=== PATIENT | male | born 1990 | race Caucasian/White ===

== ENCOUNTER 2017-04-07 19:53 | Emergency (ER) | payer BC, OTHER ==
[2017-04-07] MEDS ORDERED: Ketorolac 60 MG/2 ML SDV IM ONE (20:07)
--- NOTE | 2017-04-07 20:09 | EDM.PDOC ---
ED HPI GENERAL MEDICAL PROBLEM - General Chief Complaint: Lower Extremity Injury/Pain Stated Complaint: HYPER-EXTENDED RIGHT KNEE Time Seen by Provider: 04/07/17 19:58 - History of Present Illness INITIAL COMMENTS - FREE TEXT/NARRATIVE: HISTORY AND PHYSICAL: History of present illness: Patient's a 26-year-old male presents with concern of acute right knee injury this occurred when he hyperextended his knee while at work he has had prior injuries but never sought orthopedic care patient states he also some mild right hip soreness he denies direct trauma he denies other trauma or concern Review of systems: As per history of present illness and below otherwise all systems reviewed and negative. Past medical history: As per history of present illness and as reviewed below otherwise noncontributory. Surgical history: As per history of present illness and as reviewed below otherwise noncontributory. Social history: No reported history of drug or alcohol abuse. Family history: As per history of present illness and as reviewed below otherwise noncontributory. Physical exam: HEENT: Atraumatic, normocephalic, pupils reactive, negative for conjunctival pallor or scleral icterus, mucous membranes moist, throat clear, neck supple, nontender, trachea midline. Lungs: Clear to auscultation, breath sounds equal bilaterally, chest nontender. Heart: S1S2, regular, negative for clicks, rubs, or JVD. Abdomen: Soft, nondistended, nontender. Negative for masses or hepatosplenomegaly. Negative for costovertebral tenderness. Pelvis: Stable nontender. Genitourinary: Deferred. Rectal: Deferred. Extremities: Small swelling noted joint grossly stable no crepitation or point tenderness limited range of motion secondary to pain CMS neurovascular exam is unremarkable Neuro: Awake, alert, oriented. Cranial nerves II through XII unremarkable. Cerebellum unremarkable. Motor and sensory unremarkable throughout. Exam nonfocal. Diagnostics: X-ray right knee/hip Therapeutics: Toradol 60 mg IM Impression: #1 acute right knee/hip injury Definitive disposition and diagnosis as appropriate pending reevaluation and review of above. Right Knee Pain Score (Numeric/FACES): 8 - Related Data Allergies Allergy/AdvReac Type Severity Reaction Status Date / Time No Known Allergies Allergy Verified 07/13/16 14:22 Home Meds: Home Meds . [No Known Home Meds] 04/07/17 [History] Past Medical History Cardiovascular History: Reports: None Respiratory History: Reports: None Gastrointestinal History: Reports: None Genitourinary History: Reports: None Musculoskeletal History: Reports: None Neurological History: Reports: None Psychiatric History: Reports: None Endocrine/Metabolic History: Reports: None Hematologic History: Reports: None Immunologic History: Reports: None Oncologic (Cancer) History: Reports: None Dermatologic History: Reports: None - Infectious Disease History Infectious Disease History: Reports: Chicken Pox - Past Surgical History Head Surgeries/Procedures: Reports: None HEENT Surgical History: Reports: Tonsillectomy Social & Family History - Family History Family Medical History: Noncontributory - Tobacco Use Smoking Status *Q: Current Every Day Smoker Years of Tobacco use: 1 Packs/Tins Daily: 1 - Caffeine Use Caffeine Use: Reports: Coffee, Soda - Alcohol Use Days Per Week of Alcohol Use: 2 Number of Drinks Per Day: 2 Total Drinks Per Week: 4 - Recreational Drug Use Recreational Drug Use: No Review of Systems - Review of Systems Review Of Systems: ROS reveals no pertinent complaints other than HPI. ED EXAM, GENERAL - Physical Exam Exam: See Below (See dictation) Course - Vital Signs Last Recorded V/S: Last Vital Signs Temp 36.6 C 04/07/17 19:58 Pulse 95 04/07/17 19:58 Resp 18 04/07/17 19:58 BP 128/78 04/07/17 19:58 Pulse Ox 97 04/07/17 19:58 - Orders/Labs/Meds Orders: Active Orders 24 hr Category Date Time Status Hip Min 2V or 3V Rt [CR] Stat Exams 04/07/17 20:07 Taken Knee 3V Rt [CR] Stat Exams 04/07/17 20:03 Taken Knee wo Cont Rt [CT] Stat Exams 04/07/17 21:08 Taken Meds: Medications Discontinued Medications Generic Name Dose Route Start Last Admin Trade Name Freq PRN Reason Stop Dose Admin Ketorolac Tromethamine 60 mg 04/07/17 20:07 04/07/17 20:17 Toradol IM 04/07/17 20:08 60 mg ONETIME ONE Administration Departure - Departure Time of Disposition: 22:14 Disposition: Home, Self-Care 01 Condition: Good Clinical Impression: Knee injury - Discharge Information Forms: ED Department Discharge Additional Instructions: e following information is given to patients seen in the emergency department who are being discharged to home. This information is to outline your options for follow-up care. We provide all patients seen in our emergency department with a follow-up referral. The need for follow-up, as well as the timing and circumstances, are variable depending upon the specifics of your emergency department visit. If you don't have a primary care physician on staff, we will provide you with a referral. We always advise you to contact your personal physician following an emergency department visit to inform them of the circumstance of the visit and for follow-up with them and/or the need for any referrals to a consulting specialist. The emergency department will also refer you to a specialist when appropriate. This referral assures that you have the opportunity for followup care with a specialist. All of these measure are taken in an effort to provide you with optimal care, which includes your followup. Under all circumstances we always encourage you to contact your private physician who remains a resource for coordinating your care. When calling for followup care, please make the office aware that this follow-up is from your recent emergency room visit. If for any reason you are refused follow-up, please contact the [facility] emergency department at and asked to speak to the emergency department charge nurse. [facility] [address], [address] [place] [address] Knee immobilizer/crutches as directed Motrin/Tylenol as directed call to schedule appointment with orthopedic surgery above return as needed as discussed - My Orders Last 24 Hours: My Active Orders 04/07/17 20:03 Knee 3V Rt [CR] Stat 04/07/17 20:07 Hip Min 2V or 3V Rt [CR] Stat 04/07/17 21:08 Knee wo Cont Rt [CT] Stat - Assessment/Plan Last 24 Hours: My Active Orders 04/07/17 20:03 Knee 3V Rt [CR] Stat 04/07/17 20:07 Hip Min 2V or 3V Rt [CR] Stat 04/07/17 21:08 Knee wo Cont Rt [CT] Stat
[2017-04-07 22:34] VITALS: BP 121/74
--- NOTE | 2017-04-10 11:37 | CR ---
EXAM DATE: 04/07/17 PATIENT'S AGE: 26 Patient: SOU[facility] DAVIES Facility: [place], [place] Site . Site : 1990 Study: XRay Knee [id number]/7/2017 8:43:26 PM Ordering Physician: Omaira Maravilla Final Report: INDICATION: fell at work TECHNIQUE: 3 views of the right knee COMPARISON: None FINDINGS: Bones: No fracture appreciated. Benign appearing sclerotic bone lesion within the lateral tibial plateau. Joint spaces: A lipohemarthrosis. Soft tissues: Unremarkable. IMPRESSION: Lipohemarthrosis. An occult fracture is suspected. Consider unenhanced CT of the right knee without contrast to further evaluate as clinically warranted. Dictated by Renny Roland MD @ 04/07/2017 9:01:01 PM Dictated by: Renny Roland MD @ 04/07/2017 21:01:39 (Electronic Signature) Report Signed by Proxy. ZUHAIR
--- NOTE | 2017-04-10 11:38 | CR ---
EXAM DATE: 04/07/17 PATIENT'S AGE: 26 Patient: SOUTH DAVIES Facility: [place], [place] Site . Site : 1990 Study: XRay Hip [id number]/7/2017 8:43:59 PM Ordering Physician: Omaira Maravilla Final Report: INDICATION: hyperextended knee TECHNIQUE: Two views of the right hip COMPARISON: None FINDINGS: Bones: No fractures or bone lesions. Joint spaces: Unremarkable. Soft tissues: Unremarkable. IMPRESSION: No acute bony abnormality of the right hip Dictated by Renny Roland MD @ 04/07/2017 9:02:39 PM Dictated by: Renny Roland MD @ 04/07/2017 21:02:52 (Electronic Signature) Report Signed by Proxy. [facility]ITAL[facility]
--- NOTE | 2017-04-10 11:39 | CT ---
EXAM DATE: 04/07/17 PATIENT'S AGE: 26 Patient: SOUTH DAVIES Facility: [place], [place] Site . Site : 1990 Study: CT Knee Right [id number]/7/2017 9:33:23 PM Ordering Physician: Omaira Maravilla Final Report: HISTORY: Knee pain after falling injury. Findings: The knee was studied in the axial plane. Sagittal and coronal 2 dimensional reconstructions were then performed. There are no findings for fracture, dislocation, arthritic change, effusion or loose body. The extensor mechanism appears intact. No soft tissue mass or fluid collection is noted. Soft tissue swelling is present anteriorly. Impression: Negative study for fracture. Please note that all CT scans at this facility use dose modulation, iterative reconstruction, and/or weight-based dosing when appropriate to reduce radiation dose to as low as reasonably achievable. Dictated by Amari Irizarry MD @ Apr 08 2017 6:58AM (Electronic Signature) Report Signed by Proxy. MTDD
== END 2017-04-07 22:30 | disposition home or self-care (01) ==
LOC: MW.ED 19:53
DX: S89.91XA Unspecified injury of right lower leg, initial encounter (principal); F17.210 Nicotine dependence, cigarettes, uncomplicated; Z98.890 Other specified postprocedural states; X50.9XXA Other and unspecified overexertion or strenuous movements or postures, initial encounter
CPT/HCPCS: 73502; 73562; 73700; 96372; 99284; J1885; 99283

== ENCOUNTER 2017-06-15 09:22 | Day surgery (SDC) | payer OTHER ==
--- NOTE | 2017-06-15 08:29 | PCM.OPNOTE ---
- General Post-Op/Procedure Note Date of Surgery/Procedure: 06/15/17 Operative Procedure(s): Right knee scope with PLM and arthroscopically aided ACL reconstruction using allograft Post-Op Diagnosis: R knee ACL tear Anesthesia Technique: General ET Tube Primary Surgeon: Arelis Hair Upholsterer Inside: Violeta Cartwright in mLs: 10 Condition: Good Free Text/Narrative:: #[id number] tt=59 min
[~2017-06-15 09:22] MED LIST: Acetaminophen/HYDROcodone 325-10 MG Tab PO PRN; Bupivacaine 0.5% 30 ML SDV ONE; Ketorolac 10 MG Tab PO PRN; Lactated Ringers 1,000 ML IV SCH; Lidocaine 1% 20 ML MDV ONE; ceFAZolin 1 GM in Premix Bag 1 BAG IV SCH
--- NOTE | 2017-06-15 10:52 | PCM.PREANE ---
Preanesthetic Assessment - Procedure Proposed Procedure: Right knee arthroscopy and ACL repair - Anesthesia/Transfusion/Family Hx Anesthesia History: Prior Anesthesia Without Reaction Family History of Anesthesia Reaction: No Transfusion History: No Prior Transfusion(s) Additional History: Multiple recreational drug exposures. hx seizures in teens....none recently. - Review of Systems General: No Symptoms Pulmonary: No Symptoms Cardiovascular: No Symptoms Gastrointestinal: No Symptoms Neurological: Difficulty Walking (due to knee pain) Other: Reports: None - Physical Assessment NPO Status Date: 06/15/17 NPO Status Time: 03:00 O2 Sat by Pulse Oximetry: 95 Respiratory Rate: 16 Vital Signs: Last Vital Signs Temp 98.2 F 06/15/17 09:34 Pulse 64 06/15/17 09:34 Resp 16 06/15/17 09:34 BP 130/80 06/15/17 09:34 Pulse Ox 95 06/15/17 09:34 Height: 6 ft 1 in Weight: 170 lb ASA Class: 2 Mental Status: Alert & Oriented x3 Airway Class: Mallampati = 1 Dentition: Reports: Normal Dentition Thyro-Mental Finger Breadths: 3 Mouth Opening Finger Breadths: 3 (trinidad) ROM/Head Extension: Full Lungs: Clear to Auscultation, Normal Respiratory Effort Cardiovascular: Regular Rate, Regular Rhythm, No Murmurs - Allergies Allergies/Adverse Reactions: Allergies Allergy/AdvReac Type Severity Reaction Status Date / Time No Known Allergies Allergy Verified 07/13/16 14:22 - Blood Blood Available: No Product(s) Available: None - Anesthesia Plan Pre-Op Medication Ordered: None - Acknowledgements Anesthesia Type Planned: General Anesthesia (LMA vs OET) Pt an Appropriate Candidate for the Planned Anesthesia: Yes Alternatives and Risks of Anesthesia Discussed w Pt/Guardian: Yes Pt/Guardian Understands and Agrees with Anesthesia Plan: Yes PreAnesthesia Questionnaire HEENT History: Reports: Other (See Below) Other HEENT History: wears glasses Cardiovascular History: Reports: None Respiratory History: Reports: None Gastrointestinal History: Reports: Other (See Below) Other Gastrointestinal History: occasional heartburn Genitourinary History: Reports: None Musculoskeletal History: Reports: Other (See Below) Other Musculoskeletal History: currently has injury to rt knee Neurological History: Reports: Seizure Other Neuro History: seizures in highschool, "none for over 10 yrs" Psychiatric History: Reports: None Endocrine/Metabolic History: Reports: None Hematologic History: Reports: None Immunologic History: Reports: None Oncologic (Cancer) History: Reports: None Dermatologic History: Reports: None - Infectious Disease History Infectious Disease History: Reports: Chicken Pox - Past Surgical History Head Surgeries/Procedures: Reports: None HEENT Surgical History: Reports: Oral Surgery, Tonsillectomy - SUBSTANCE USE Smoking Status *Q: Current Every Day Smoker Tobacco Use Within Last Twelve Months: Cigarettes Days Per Week of Alcohol Use: 2 Number of Drinks Per Day: 2 Total Drinks Per Week: 4 Recreational Drug Use History: No Recreational Drug Type: Reports: Cocaine, Marijuana/Hashish, Methamphetamine - HOME MEDS Home Medications: Home Meds . [No Known Home Meds] 04/07/17 [History] - CURRENT (IN HOUSE) MEDS Current Meds: Current Medications Hydrocodone Bitart/Acetaminophen (Hemet 325-10 Mg) 1 - 2 tab PO Q4H PRN PRN Reason: Pain Cefazolin Sodium/Dextrose 1 gm (/ Premix) 50 mls @ 100 mls/hr IV ONCALL SAMINA Lactated Ringer's (Ringers, Lactated) 1,000 mls @ 100 mls/hr IV ASDIRECTED SAMINA Last Admin: 06/15/17 09:33 Dose: 100 mls/hr Ketorolac Tromethamine (Toradol) 10 mg PO Q6H PRN PRN Reason: Pain Stop: 06/20/17 08:01 Discontinued Medications Bupivacaine HCl (Marcaine 0.5%) Confirm Administered Dose 30 ml .ROUTE .STK-MED ONE Stop: 06/15/17 07:55 Lidocaine HCl (Xylocaine 1%) Confirm Administered Dose 20 ml .ROUTE .STK-MED ONE Stop: 06/15/17 07:55
[2017-06-15] MEDS ORDERED: Lidocaine 2% 5 ML SDV ONE (12:08)
[2017-06-15] MEDS ORDERED: fentaNYL 100 MCG/2 ML SDV ONE ×2 (12:09→14:01)
[2017-06-15] MEDS ORDERED: Propofol 200 MG/20 ML SDV ONE (12:09)
[2017-06-15] MEDS ORDERED: Midazolam 1 MG/ML 2 ML SDV ONE (12:09)
[2017-06-15] MEDS ORDERED: Ketorolac 30 MG/ML SDV ONE (12:09)
[2017-06-15] MEDS ORDERED: Succinylcholine/Normal Saline 200 MG/10 ML Syringe ONE (12:09)
[2017-06-15] MEDS ORDERED: Ondansetron 4 MG/2 ML SDV ONE (12:09)
[2017-06-15] MEDS: fentaNYL 100 MCG/2 ML SDV IVPUSH PRN ×4 (15:15→16:32)
--- NOTE | 2017-06-15 15:24 | PCM.POSTAN ---
POST ANESTHESIA ASSESSMENT - MENTAL STATUS Mental Status: Alert, Oriented - RESPIRATORY Respiratory Status: Respiratory Rate WNL, Airway Patent, O2 Saturation Stable - CARDIOVASCULAR CV Status: Pulse Rate WNL, Blood Pressure Stable - GASTROINTESTINAL GI Status: No Symptoms - PAIN Pain Score: 8 - POST OP HYDRATION Hydration Status: Adequate & Stable
[2017-06-15 16:46] VITALS: BP 141/39
[2017-06-15] MEDS ORDERED: Lidocaine 1% 20 ML MDV ONE (16:59)
--- NOTE | 2017-06-15 17:16 | PCM48HPAN ---
Post Anesthesia Note - EVALUATION WITHIN 48HRS OF ANESTHETIC Vital Signs in Normal Range: Yes Patient Participated in Evaluation: Yes Respiratory Function Stable: Yes Airway Patent: Yes Cardiovascular Function Stable: Yes Hydration Status Stable: Yes Pain Control Satisfactory: Yes Nausea and Vomiting Control Satisfactory: Yes Mental Status Recovered: Yes - COMMENTS/OBSERVATIONS Free Text/Narrative:: Difficult to maneuver with straight leg in order to be transported to vehicle for ride home. He handled it well.
--- NOTE | 2017-06-15 21:04 | OR ---
SURGEON: Arelis Hair MD DATE OF PROCEDURE: 06/15/2017 PREOPERATIVE DIAGNOSIS: Left knee anterior cruciate ligament tear. POSTOPERATIVE DIAGNOSES: Left knee anterior cruciate ligament tear and left knee lateral meniscus tear. PROCEDURES: Left knee arthroscopy with: 1. Partial lateral meniscectomy. 2. Arthroscopically aided anterior cruciate ligament reconstruction using allograft. BALE TIE MACHINE OPERATOR: Violeta Cartwrihgt PA-C. ANESTHESIA: General. ESTIMATED BLOOD LOSS: 10 mL. TOURNIQUET TIME: 59 minutes. COMPLICATIONS: None. DVT PROPHYLAXIS: PAS boot to the nonoperative leg. IMPLANTS USED: Arthrex ACL TightRope fixation system with EndoButton on the distal femur and plate on the proximal tibia. BRIEF HISTORY: Tariq is a 26-year-old male, who sustained an injury to his right knee. MRI confirmed a tear of the anterior cruciate ligament. He did undergo initial conservative treatment. He elected to proceed with surgical treatment. The risks and goals of the procedure were discussed with the patient and were documented preoperatively. He agreed to proceed. DESCRIPTION OF PROCEDURE: The patient was properly identified and brought to the operating room. He was transferred from the OR cart and placed on the operating room table in supine position. General anesthesia was administered. After adequate anesthesia was obtained, a well-padded tourniquet was applied to the right lower extremity. The right lower extremity was then prepped in standard fashion using ChloraPrep solution. It was then sterilely draped. A time-out was performed to ensure correct site and procedure. Preoperative antibiotics were given. The surgical site had been marked preoperatively. An Esmarch was used to exsanguinate the right lower extremity and the tourniquet was inflated to 250 mmHg. A lateral portal arthrotomy was established. Blunt trocar and cannula were introduced into the suprapatellar pouch. Camera, inflow, and outflow were assembled. The suprapatellar pouch showed no significant synovitis. The patellofemoral joint was visualized. There appeared to be no degenerative changes. The patella appeared to track centrally. I then extended down the lateral and medial gutter. No loose bodies were identified. I then entered the medial compartment. A medial portal arthrotomy was established. A blunt probe was inserted. The medial meniscus was probed. No tears were appreciated. The joint surfaces appeared pristine. I then entered the notch. Immediately evident was a deficiency of the ACL. There was a small remnant of ligament attached to the lateral femoral condyle. The remainder was scarred to the PCL. I then entered the lateral compartment. The lateral meniscus was probed. He was found to have a nearly full thickness tear of the posterior horn of the lateral meniscus which involved the white-white zone. I did not feel this was amenable to repair due to its central location. Using a combination of biters and shaver, this was resected back to a stable remnant. The remaining remnant did have a horizontal split, however, probing of the superior and inferior portion showed no evidence of instability. The joint surfaces showed minor softening consistent with grade 1 chondromalacia. I then turned my attention back to the notch. The ACL remnant was removed. The PCL was visualized and found to be intact. The attachment site was gently debrided. The portion of the ACL insertion was kept in place for its proprioceptive qualities. The lateral wall was cleared of tissue. A curette was used to make sure that we were posterior enough and I was able to lift the femur with this. A 5.0 mm joaquina was then used to perform a notchplasty which improved visualization. The tibia was prepared first. The graft had been prepared on the back table in the usual fashion. It did have a diameter of 8.5 mm. The tibial guide was placed. A medial proximal tibia incision was made. The subcutaneous tissues were dissected down to the level of the periosteum. Electrocautery was used to incise the periosteum and this was gently elevated. The tibial guide was then placed. A wire was passed into the proximal tibia. It was felt that it was appropriate placement and length. This wire was then overdrilled with a 9 mm reamer. The shaver was inserted into the tibial hole to clean any bony debris. A rasp was also used to smooth the posterior edge of the tibial tunnel. A cannula was then placed into the tibial tunnel which helped with water management. We then turned our attention to the femur. The retrograde cutter guide was placed in the appropriate position. A small incision was made over the lateral aspect of the distal femur and the FlipCutter was inserted. It was felt that we had appropriate position of the FlipCutter. This was then back reamed approximately 27 mm. I was quite happy with the position of the femoral tunnel as it was quite posterior and inferior. The shaver was then introduced to remove the bony debris. The suture was then passed through the cannula and was grasped with from the tibial tunnel. The cannulas were then removed. The graft was passed into the distal femur. I was able to visualize the EndoButton as it deployed. It was flipped over the outer cortex of the distal femur. C-arm confirmed that the button had flipped along the cortex. The graft was then advanced approximately 20 mm into the distal femur. The knee was then taken through a range of motion under direct visualization. There did not appear to be any impingement of the graft with the PCL or the condyle. The leg was then brought into a position of extension. The button was attached to the TightRope fixation system. The TightRope fixation system was then used to stabilize the graft to the tibia. The knee was held in slight hyperextension as this was done. The camera was then placed back into the knee and I was able to directly visualize the graft. It was probed and found to be stable. The sutures were then tied over the distal button on the tibia. The tourniquet was deflated. 0 Vicryl was used to close the tissue overlying the button. 3-0 nylon was used to close the subcutaneous tissues and 4-0 Monocryl was used to close the skin. Steri-Strips and Benzoin were placed. 3-0 nylon was used to close remainder of the incisions. Xeroform gauze was placed over the wound and a bulky dressing was applied. He was placed into a hinged knee brace locked in full extension. He was awakened from his anesthetic and transferred back to the operating room cart. He was brought to recovery room in stable condition. All needle and sponge counts were correct. KARTIK / EDSON /[id number]
--- NOTE | 2017-06-16 08:51 | CR ---
EXAMINATION: Pain the HISTORY: ACL repair COMPARISON: 04/19/2017 TECHNIQUE: Single view FINDINGS/IMPRESSION: Single operative control film demonstrates post operative changes secondary to A CL repair.
== END 2017-06-15 16:45 | disposition home or self-care (01) ==
LOC: MW.SDS 09:22
PROVIDERS: ATTEND Orthopaedic Surgery
DX: S83.512A Sprain of anterior cruciate ligament of left knee, initial encounter (principal); S83.242A Other tear of medial meniscus, current injury, left knee, initial encounter; X58.XXXA Exposure to other specified factors, initial encounter; Y93.9 Activity, unspecified; Y92.69 Other specified industrial and construction area as the place of occurrence of the external cause; Z98.890 Other specified postprocedural states
CPT/HCPCS: 29881; 29888; 76000; A9270; J0690; J1885; J2250; J2405; J3010; J7120; 01402; 88304; C1762; C1776; J2704

== ENCOUNTER 2017-11-25 05:28 | Emergency (ER) | payer MEDICAID, OTHER ==
[2017-11-25 06:25] LABS: CHLORIDE,CL 106 mmol/L (98-110); SODIUM,NA 139 mmol/L (136-146)
[2017-11-25] MEDS ORDERED: Bacitracin Oint 1 GM U/D Packet TOP ONE (06:25)
[2017-11-25 06:34] VITALS: BP 141/95
[2017-11-25] MEDS ORDERED: Ondansetron 4 MG/2 ML SDV IVPUSH ONE (06:41)
[2017-11-25] MEDS ORDERED: Ondansetron 4 MG Tab.DIS PO ONE (06:42)
--- NOTE | 2017-11-25 07:11 | EDM.PDOC ---
ED HPI GENERAL MEDICAL PROBLEM - General Chief Complaint: General Stated Complaint: DIFFICULTY BREATHING Time Seen by Provider: 11/25/17 07:10 - History of Present Illness INITIAL COMMENTS - FREE TEXT/NARRATIVE: HISTORY AND PHYSICAL: History of present illness: Patient is 27-year-old male history of polysubstance abuse who presents after having been found unresponsive at his apartment by his roommate paramedics were called Narcan was given intranasal and intravenously patient responded and is awake alert on arrival is no complaints and no recollection of the event he acknowledges polysubstance abuse. His emergency course has been unremarkable and patient request discharged home Review of systems: As per history of present illness and below otherwise all systems reviewed and negative. Past medical history: As per history of present illness and as reviewed below otherwise noncontributory. Surgical history: As per history of present illness and as reviewed below otherwise noncontributory. Social history: No reported history of drug or alcohol abuse. Family history: As per history of present illness and as reviewed below otherwise noncontributory. Physical exam: HEENT: Atraumatic, normocephalic, pupils reactive, negative for conjunctival pallor or scleral icterus, mucous membranes moist, throat clear, neck supple, nontender, trachea midline. Lungs: Clear to auscultation, breath sounds equal bilaterally, chest nontender. Heart: S1S2, regular, negative for clicks, rubs, or JVD. Abdomen: Soft, nondistended, nontender. Negative for masses or hepatosplenomegaly. Negative for costovertebral tenderness. Pelvis: Stable nontender. Genitourinary: Deferred. Rectal: Deferred. Extremities: Atraumatic, negative for cords or calf pain. Neurovascular unremarkable. Neuro: Awake, alert, oriented. Cranial nerves II through XII unremarkable. Cerebellum unremarkable. Motor and sensory unremarkable throughout. Exam nonfocal. Diagnostics: CBC CMP UA urine drug screen EtOH CT brain chest x-ray EKG Therapeutics: IV O2 monitor Impression: #1 polysubstance abuse Definitive disposition and diagnosis as appropriate pending reevaluation and review of above. - Related Data Allergies Allergy/AdvReac Type Severity Reaction Status Date / Time No Known Allergies Allergy Verified 11/25/17 05:57 Home Meds: Home Meds . [No Known Home Meds] 11/25/17 [History] Past Medical History HEENT History: Reports: Other (See Below) Other HEENT History: wears glasses Cardiovascular History: Reports: None Respiratory History: Reports: None Gastrointestinal History: Reports: Other (See Below) Other Gastrointestinal History: occasional heartburn Genitourinary History: Reports: None Musculoskeletal History: Reports: None Other Musculoskeletal History: currently has injury to rt knee Neurological History: Reports: Seizure Other Neuro History: seizures in 2006, was placed on medication "for a while" as reported by mother Psychiatric History: Reports: None Endocrine/Metabolic History: Reports: None Hematologic History: Reports: None Immunologic History: Reports: None Oncologic (Cancer) History: Reports: None Dermatologic History: Reports: None - Infectious Disease History Infectious Disease History: Reports: Chicken Pox - Past Surgical History Head Surgeries/Procedures: Reports: None HEENT Surgical History: Reports: Oral Surgery, Tonsillectomy GI Surgical History: Reports: None Other Musculoskeletal Surgeries/Procedures:: right knee surgery Social & Family History - Family History Family Medical History: Noncontributory Cardiac: Reports: Hypertension, [place] Neurological: Reports: CVA Endocrine/Metabolic: Reports: Diabetes, type II - Tobacco Use Smoking Status *Q: Current Every Day Smoker Years of Tobacco use: 3 Packs/Tins Daily: 1 - Caffeine Use Caffeine Use: Reports: Coffee, Energy Drinks, Soda Caffeine Use Comment: 1-4 daily - Alcohol Use Days Per Week of Alcohol Use: 2 Number of Drinks Per Day: 2 Total Drinks Per Week: 4 - Recreational Drug Use Recreational Drug Use: No Drug Use in Last 12 Months: Yes Recreational Drug Type: Reports: Cocaine, Marijuana/Hashish, Methamphetamine Other Recreational Drug Type: last recreational drugs 5 months ago ED ROS GENERAL - Review of Systems Review Of Systems: See Below (See dictated) ED EXAM, GENERAL - Physical Exam Exam: See Below (See dictation) Course - Vital Signs Last Recorded V/S: Last Vital Signs Temp 36.1 C 11/25/17 05:35 Pulse 100 11/25/17 06:33 Resp 14 11/25/17 06:33 BP 141/95 H 11/25/17 06:33 Pulse Ox 100 11/25/17 06:33 - Orders/Labs/Meds Orders: Active Orders 24 hr Category Date Time Status EKG Documentation Completion [RC] STAT Care 11/25/17 05:33 Active Chest 1V Frontal [CR] Stat Exams 11/25/17 05:33 Taken Head wo Cont [CT] Stat Exams 11/25/17 05:33 Taken Labs: Laboratory Tests 11/25/17 11/25/17 11/25/17 Range/Units 05:44 05:44 05:45 WBC 15.19 H (4.0-11.0) K/uL RBC 4.88 (4.50-5.90) M/uL Hgb 14.8 (13.0-17.0) g/dL Hct 44.0 (38.0-50.0) % MCV 90.2 (80.0-98.0) fL MCH 30.3 (27.0-32.0) pg MCHC 33.6 (31.0-37.0) g/dL RDW Std Deviation 45.7 (28.0-62.0) fl RDW Coeff of Julianna 14 (11.0-15.0) % Plt Count 403 H (150-400) K/uL MPV 8.90 (7.40-12.00) fL Add Manual Diff YES Neutrophils % (Manual) 75 (48.0-80.0) % Band Neutrophils % 1 % Lymphocytes % (Manual) 18 (16.0-40.0) % Monocytes % (Manual) 4 (0.0-15.0) % Eosinophils % (Manual) 2 (0.0-7.0) % Nucleated RBC % 0.0 /100WBC Absolute Seg Neuts 11.4 H (1.4-5.7) Band Neutrophils # 0.2 Lymphocytes # (Manual) 2.7 H (0.6-2.4) Monocytes # (Manual) 0.6 (0.0-0.8) Eosinophils # (Manual) 0.3 (0.0-0.7) Nucleated RBCs # 0 K/uL Sodium 139 (136-146) mmol/L Potassium 3.8 (3.5-5.1) mmol/L Chloride 106 (98-110) mmol/L Carbon Dioxide 18 L (21-31) mmol/L BUN 13 (6.0-23.0) mg/dL Creatinine 1.2 (0.6-1.5) mg/dL Est Cr Clr Drug Dosing 95.08 mL/min Estimated GFR (MDRD) > 60.0 ml/min Glucose 259 H (60-110) mg/dL POC Glucose 237 H (60-110) mg/dL Calcium 9.1 (8.8-10.8) mg/dL Total Bilirubin 0.4 (0.1-1.5) mg/dL AST 14 (5-40) IU/L ALT 23 (8-54) IU/L Alkaline Phosphatase 85 (40-150) CK-MB (CK-2) 1.0 (0-6.6) ng/ml Troponin I < 0.10 (0.0-0.29) NG/ML Total Protein 6.9 (6.0-8.0) g/dL Albumin 4.4 (3.5-5.0) g/dL Globulin 2.5 (2.0-3.5) g/dL Albumin/Globulin Ratio 1.8 (1.3-2.8) Urine Color Urine Appearance Urine pH (5.0-8.0) Ur Specific [place] (1.001-1.035) Urine Protein (NEGATIVE) mg/dL Urine Glucose (UA) (NEGATIVE) mg/dL Urine Ketones (NEGATIVE) mg/dL Urine Occult Blood (NEGATIVE) Urine Nitrite (NEGATIVE) Urine Bilirubin (NEGATIVE) Urine Urobilinogen (<2.0) EU/dL Ur Leukocyte Esterase (NEGATIVE) Urine RBC (0-2/HPF) Urine WBC (0-5/HPF) Ur Epithelial Cells (NONE-FEW) Urine Bacteria (NEGATIVE) Coarse Granular Casts (NEGATIVE) Urine Opiates Screen (NEGATIVE) Ur Oxycodone Screen (NEGATIVE) Urine Methadone Screen (NEGATIVE) Ur Barbiturates Screen (NEGATIVE) Ur Phencyclidine Scrn (NEGATIVE) Ur Amphetamine Screen (NEGATIVE) U Methamphetamines Scrn (NEGATIVE) U Benzodiazepines Scrn (NEGATIVE) U Cocaine Metab Screen (NEGATIVE) U Marijuana (THC) Screen (NEGATIVE) 11/25/17 11/25/17 Range/Units 06:05 06:05 WBC (4.0-11.0) K/uL RBC (4.50-5.90) M/uL Hgb (13.0-17.0) g/dL Hct (38.0-50.0) % MCV (80.0-98.0) fL MCH (27.0-32.0) pg MCHC (31.0-37.0) g/dL RDW Std Deviation (28.0-62.0) fl RDW Coeff of Julianna (11.0-15.0) % Plt Count (150-400) K/uL MPV (7.40-12.00) fL Add Manual Diff Neutrophils % (Manual) (48.0-80.0) % Band Neutrophils % % Lymphocytes % (Manual) (16.0-40.0) % Monocytes % (Manual) (0.0-15.0) % Eosinophils % (Manual) (0.0-7.0) % Nucleated RBC % /100WBC Absolute Seg Neuts (1.4-5.7) Band Neutrophils # Lymphocytes # (Manual) (0.6-2.4) Monocytes # (Manual) (0.0-0.8) Eosinophils # (Manual) (0.0-0.7) Nucleated RBCs # K/uL Sodium (136-146) mmol/L Potassium (3.5-5.1) mmol/L Chloride (98-110) mmol/L Carbon Dioxide (21-31) mmol/L BUN (6.0-23.0) mg/dL Creatinine (0.6-1.5) mg/dL Est Cr Clr Drug Dosing mL/min Estimated GFR (MDRD) ml/min Glucose (60-110) mg/dL POC Glucose (60-110) mg/dL Calcium (8.8-10.8) mg/dL Total Bilirubin (0.1-1.5) mg/dL AST (5-40) IU/L ALT (8-54) IU/L Alkaline Phosphatase (40-150) CK-MB (CK-2) (0-6.6) ng/ml Troponin I (0.0-0.29) NG/ML Total Protein (6.0-8.0) g/dL Albumin (3.5-5.0) g/dL Globulin (2.0-3.5) g/dL Albumin/Globulin Ratio (1.3-2.8) Urine Color YELLOW Urine Appearance HAZY Urine pH 6.0 (5.0-8.0) Ur Specific [place] 1.025 (1.001-1.035) Urine Protein 30 (NEGATIVE) mg/dL Urine Glucose (UA) 500 H (NEGATIVE) mg/dL Urine Ketones NEGATIVE (NEGATIVE) mg/dL Urine Occult Blood NEGATIVE (NEGATIVE) Urine Nitrite NEGATIVE (NEGATIVE) Urine Bilirubin NEGATIVE (NEGATIVE) Urine Urobilinogen 0.2 (<2.0) EU/dL Ur Leukocyte Esterase NEGATIVE (NEGATIVE) Urine RBC 0-2 (0-2/HPF) Urine WBC 0-2 (0-5/HPF) Ur Epithelial Cells RARE (NONE-FEW) Urine Bacteria FEW (NEGATIVE) Coarse Granular Casts 0-1 (NEGATIVE) Urine Opiates Screen NEGATIVE (NEGATIVE) Ur Oxycodone Screen NEGATIVE (NEGATIVE) Urine Methadone Screen NEGATIVE (NEGATIVE) Ur Barbiturates Screen NEGATIVE (NEGATIVE) Ur Phencyclidine Scrn NEGATIVE (NEGATIVE) Ur Amphetamine Screen POSITIVE (NEGATIVE) U Methamphetamines Scrn POSITIVE (NEGATIVE) U Benzodiazepines Scrn NEGATIVE (NEGATIVE) U Cocaine Metab Screen NEGATIVE (NEGATIVE) U Marijuana (THC) Screen POSITIVE (NEGATIVE) Meds: Medications Discontinued Medications Generic Name Dose Route Start Last Admin Trade Name Freq PRN Reason Stop Dose Admin Bacitracin 1 dose 11/25/17 06:25 11/25/17 06:43 Bacitracin Oint 1 Gm TOP 11/25/17 06:26 1 dose ONETIME ONE Administration Ondansetron HCl 4 mg 11/25/17 06:41 11/25/17 06:44 Zofran IVPUSH 11/25/17 06:42 Not Given ONETIME ONE Ondansetron HCl 4 mg 11/25/17 06:42 11/25/17 06:45 Zofran Odt PO 11/25/17 06:43 4 mg ONETIME ONE Administration Departure - Departure Time of Disposition: 07:10 Disposition: Home, Self-Care 01 Condition: Good Clinical Impression: Polysubstance abuse - Discharge Information Referrals: Keith Sullivan MD [Primary Care Provider] - Additional Instructions: The following information is given to patients seen in the emergency department who are being discharged to home. This information is to outline your options for follow-up care. We provide all patients seen in our emergency department with a follow-up referral. The need for follow-up, as well as the timing and circumstances, are variable depending upon the specifics of your emergency department visit. If you don't have a primary care physician on staff, we will provide you with a referral. We always advise you to contact your personal physician following an emergency department visit to inform them of the circumstance of the visit and for follow-up with them and/or the need for any referrals to a consulting specialist. The emergency department will also refer you to a specialist when appropriate. This referral assures that you have the opportunity for followup care with a specialist. All of these measure are taken in an effort to provide you with optimal care, which includes your followup. Under all circumstances we always encourage you to contact your private physician who remains a resource for coordinating your care. When calling for followup care, please make the office aware that this follow-up is from your recent emergency room visit. If for any reason you are refused follow-up, please contact the [facility] emergency department at and asked to speak to the emergency department charge nurse. Follow-up primary medical doctor 1-2 days stop using drugs return as needed as discussed - My Orders Last 24 Hours: My Active Orders 11/25/17 05:33 EKG Documentation Completion [RC] STAT Chest 1V Frontal [CR] Stat Head wo Cont [CT] Stat - Assessment/Plan Last 24 Hours: My Active Orders 11/25/17 05:33 EKG Documentation Completion [RC] STAT Chest 1V Frontal [CR] Stat Head wo Cont [CT] Stat
--- NOTE | 2017-11-27 09:02 | CR ---
EXAM DATE: 11/25/17 PATIENT'S AGE: 27 Patient: S[facility] DAVIES Facility: [place], [place] Site . Site : 1990 Study: XRay Chest [id number]/24/2018 6:04:26 AM Ordering Physician: Doctor Lezama Final Report: INDICATION: LOC TECHNIQUE: Chest 1 view. COMPARISON: None. FINDINGS: Cardiovascular and mediastinum: Heart size and vasculature are normal in caliber and appearance. Mediastinum is within normal limits. Lungs and pleural space: Lungs are clear. No sign of infiltrate or mass. No sign of pleural effusion. No pneumothorax. Bones and soft tissues: No significant findings. IMPRESSION: Unremarkable chest. Dictated by: Robert Serna MD @ 11/25/2017 06:09:14 (Electronic Signature) Report Signed by Proxy. ZUHAIR
--- NOTE | 2017-11-27 09:03 | CT ---
EXAM DATE: 11/25/17 PATIENT'S AGE: 27 Patient: S[facility] DAVIES Facility: [place], [place] Site . Site : 1990 Study: CT Head [id number]/24/2018 6:04:59 AM Ordering Physician: Doctor Lezama Final Report: INDICATION: LOC TECHNIQUE: CT head without contrast. COMPARISON: 02/21/2009 FINDINGS: CSF spaces: Within normal limits for age. Brain parenchyma: The madrigal-white differentiation is normal. No sign of mass, hemorrhage, or midline shift. Skull base and calvarium: The visualized paranasal sinuses and mastoid air cells demonstrate no acute or significant findings. The visualized orbits are grossly unremarkable. No skull fractures. IMPRESSION: Unremarkable noncontrast head CT. Dictated by Robert Serna MD @ 11/25/2017 6:13:15 AM Dictated by: Robert Serna MD @ 11/25/2017 06:13:23 (Electronic Signature) Report Signed by Proxy. [facility]
== END 2017-11-25 07:22 | disposition home or self-care (01) ==
LOC: MW.ED 05:28
DX: F19.10 Other psychoactive substance abuse, uncomplicated (principal); F17.210 Nicotine dependence, cigarettes, uncomplicated
CPT/HCPCS: 36415; 70450; 71045; 80053; 80305; 81001; 82553; 82962; 84484; 85025; 93005; 99285; A9270; 99283

== ENCOUNTER 2018-02-09 05:31 | Emergency (ER) | payer MEDICAID | END 2018-02-09 05:38 | LOC: MW.ED 05:31 | DX: Z53.21 Procedure and treatment not carried out due to patient leaving prior to being seen by health care provider (principal) ==